=== PATIENT | male | born 1950 | race Caucasian/White ===

== ENCOUNTER 2018-12-18 10:15 | Inpatient (IN) | payer OTHER, MEDICARE ==
[~2018-12-18] VITALS: Ht 180.3 cm; Wt 126.2 kg
[2018-12-18 10:47] LABS: BASOPHILS ABSOLUTE AUTO 0.04 K/mm3 (0.00-0.23); BASOPHILS PERCENT AUTO 1 % (0-2); EOSINOPHILS ABSOLUTE AUTO 0.12 K/mm3 (0.00-0.68); EOSINOPHILS PERCENT AUTO 2 % (0-6); Hematocrit 38.8 % (37.0-53.0); Hemoglobin 12.5 g/dL (13.5-17.5); IMMATURE GRAN ABSOLUTE AUTO 0.02 K/mm3 (0.00-0.10); IMMATURE GRAN PERCENT AUTO 0 % (0-1); LYMPHOCYTES ABSOLUTE AUTO 1.49 K/mm3 (0.84-5.20); LYMPHOCYTES PERCENT AUTO 18 % (21-46); MONOCYTES PERCENT AUTO 11 % (4-13); Mean Corpuscular HGB Conc 32.2 g/dL (31.5-36.5); Mean Corpuscular Volume 87 fL (80-100); Mean Platelet Volume 10.9 fL (9.1-12.4); NEUTROPHILS ABSOLUTE AUTO 5.56 K/mm3 (1.96-9.15); NEUTROPHILS PERCENT AUTO 68 % (41-73); Platelet Count 154 K/mm3 (150-400); RDW Coefficient Variation 14.5 % (11.7-14.2); RDW Standard Deviation 46.5 fL (35.1-46.3); Red Blood Cell Count 4.46 M/mm3 (4.30-5.90); White Blood Cell Count 8.13 K/mm3 (4.00-11.30)
[2018-12-18 11:03] LABS: International Normalized Ratio 1.2; Prothrombin Time Results 12.5 Sec (9.7-11.5)
[2018-12-18 11:04] LABS: Alanine Aminotransfer (ALT/SGP 14 U/L (12-78); Albumin/Globulin Ratio 0.6 (0.8-1.8); Alk Phos 67 U/L (50-136); Anion Gap 6 mmol/L (6-16); Aspartate Aminotrans (AST/SGOT 23 U/L (12-37); Bilirubin, Total 1.2 mg/dL (0.1-1.0); Blood Urea Nitrogen 10 mg/dL (8-24); Bun/Creatinine Ratio 12.7 (12.0-20.0); CO2, Blood 29 mmol/L (21-32); Calcium, Blood 8.7 mg/dL (8.5-10.1); Chloride, Blood 105 mmol/L (98-108); Creatinine, Blood 0.79 mg/dL (0.60-1.20); Globulin, Blood 4.7 g/dL (2.2-4.0); Glomerular Filtration Rate >60 (60-); Glucose, Blood 119 mg/dL (70-99); Sodium, Blood 140 mmol/L (136-145); Total Protein, Blood 7.7 g/dL (6.4-8.2); Troponin I 0.025 ng/mL (0.000-0.040)
[2018-12-18] MEDS ORDERED: INSDET100 SC (11:13)
[2018-12-18] MEDS ORDERED: GLUCOSE BITS1 GM PO (11:14)
[2018-12-18] MEDS ORDERED: NOVOLOG FL100 UNIT/1 SC (11:15)
[2018-12-18] MEDS ORDERED: STRIVERDI RESPIM4 GM INH (11:15)
[2018-12-18] MEDS ORDERED: POTCHL20ER PO (11:16)
[2018-12-18] MEDS ORDERED: FURO40 PO (11:16)
[2018-12-18] MEDS ORDERED: ASPI81CH PO (11:16)
[2018-12-18] MEDS ORDERED: NYSTRITC TOP (11:16)
[2018-12-18] MEDS ORDERED: TRAM50 PO (11:17)
[2018-12-18] MEDS ORDERED: ATOR10 PO (11:18)
[2018-12-18] MEDS ORDERED: Vitamin D2000 UNIT PO (11:18)
[2018-12-18] MEDS ORDERED: PRAZ1 PO (11:18)
[2018-12-18] MEDS ORDERED: Nystop60 GM TOP (14:06)
[2018-12-18] MEDS ORDERED: Aspir 8181 MG PO (14:07)
[2018-12-18] MEDS ORDERED: PREG100 PO (14:12)
--- NOTE | 2018-12-18 14:22 | NUR ---
echocardiogram completed
--- NOTE | 2018-12-18 18:39 | NUR ---
pt arrived to [facility] 12 via gurney from ED. son in law in attendence. pt is moaning a bit especially when moved, but not really answering questions, did say something about not getting insulin this am. pt is not able to cooperate with assessement, he appears to be weak on left side, he has bere boots in place, son in law report they were changed a few days ago. pt is unkept, bed bath given, he has wet yeast to panus folds, and jagjit area, penis and scrotum is very red, buttocks are purple, with no blanching, in a large area, he had stool on arrival, this was cleaned, when the yeast areas and jagjit area was cleaned it bled a bit, when bere boots were removed there was a large amount of maggots to left foot, feet were washed in soapy sterile water, pictures were taken of all wounds, full bath given, report given to night RN.
--- NOTE | 2018-12-19 01:35 | NUR ---
Assumed care of pt at approx 1900. Pt with son in law at bedside at time of shift change. Admission completed with the help of Son. Pt with apparent and severe skin break down throughout body, most especially on BLE, bilateral feet found with magets living inbetween toes. Pt cleaned, wounds cleaned. Pt incont of stool and urine, two large BM's this shift, loose carina-like stools. Pt with L sided weakness, facial droop. Pt not able to use call light or make needs known, frequent rounds completed on pt. See admission assessment for detailed assesment. Will continue to assess pt and monitor.
[2018-12-19 04:08] LABS: BASOPHILS ABSOLUTE AUTO 0.05 K/mm3 (0.00-0.23); BASOPHILS PERCENT AUTO 1 % (0-2); EOSINOPHILS ABSOLUTE AUTO 0.22 K/mm3 (0.00-0.68); EOSINOPHILS PERCENT AUTO 3 % (0-6); Hematocrit 37.9 % (37.0-53.0); IMMATURE GRAN ABSOLUTE AUTO 0.02 K/mm3 (0.00-0.10); IMMATURE GRAN PERCENT AUTO 0 % (0-1); LYMPHOCYTES ABSOLUTE AUTO 1.33 K/mm3 (0.84-5.20); LYMPHOCYTES PERCENT AUTO 16 % (21-46); MONOCYTES ABSOLUTE AUTO 0.92 K/mm3 (0.16-1.47); MONOCYTES PERCENT AUTO 11 % (4-13); Mean Corpuscular HGB 27.8 pg (26.0-34.0); Mean Corpuscular HGB Conc 31.7 g/dL (31.5-36.5); Mean Corpuscular Volume 88 fL (80-100); Mean Platelet Volume 11.3 fL (9.1-12.4); NEUTROPHILS PERCENT AUTO 70 % (41-73); Platelet Count 152 K/mm3 (150-400); RDW Coefficient Variation 14.5 % (11.7-14.2); RDW Standard Deviation 46.5 fL (35.1-46.3); Red Blood Cell Count 4.31 M/mm3 (4.30-5.90); White Blood Cell Count 8.44 K/mm3 (4.00-11.30)
[2018-12-19 04:31] LABS: LDL/HDL RATIO 1.2; Very Low Density Lipoprot Chol 14 mg/dL (6-32)
[2018-12-19 04:32] LABS: Anion Gap 8 mmol/L (6-16); Blood Urea Nitrogen 10 mg/dL (8-24); Bun/Creatinine Ratio 13.2 (12.0-20.0); CHOL/HDL RATIO 2.6; CO2, Blood 26 mmol/L (21-32); Calcium, Blood 8.6 mg/dL (8.5-10.1); Chloride, Blood 106 mmol/L (98-108); Cholesterol 81 mg/dL (50-200); Creatinine, Blood 0.76 mg/dL (0.60-1.20); Glomerular Filtration Rate >60 (60-); Glucose, Blood 111 mg/dL (70-99); HDL Cholesterol 31 mg/dL (>39); Low Density Lipoprotein Chol 36 mg/dL (0-110); Potassium, Blood 3.1 mmol/L (3.5-5.5); Sodium, Blood 140 mmol/L (136-145); Triglycerides 70 mg/dL (30-160)
--- NOTE | 2018-12-19 06:39 | NUR ---
Shift Summary VSS. breathing easy and unlabored, denies SOB at rest, states he feels SOB when lying flat. Pt incont of urine and stool. three large loose stool bm this shift requiring full linen change with each void/bm. During the night, pt became disoriented and believed he was at home. Pt oriented again, now, at 0600. Pt presents with L sided weakness, L sided facial droop which is improving. Pt not able to use call light appropriately, yells out. Pt tolerating repositions and wound cleaning. Pt's skin is damaged throughout, open wounds to the BLE and Bilat feet. Open wounds to the buttocks, and scrotal area. MRI scheduled for this AM, MRI screening could not be completed d/t pt not knowing his hx. Awaiting family to arrive to aid in history for pt safety in procedure. Will continue to monitor pt until shift change.
[2018-12-19 10:34] LABS: Source, Urine Catheter
[2018-12-19 10:39] LABS: Appearance, Urine Clear (Clear); Bilirubin, Urine 2+ (Neg); Blood, Urine 2+ (Neg); Color, Urine Orange (P-Yellow); Glucose Qualitative, Urine Neg (Neg); Ketones, Urine 4+ (Neg); Leukocyte Esterase, Urine 1+ (Neg); Nitrite, Urine Neg (Neg); Protein, Urine 2+ (Neg); Urobilinogen, Urine 4+ (Normal)
[2018-12-19 10:46] LABS: Bacteria Few /hpf; Mucus Light (0-Heavy); Red Blood Cells, Urine 0-2 /hpf (0-2); Squamous Epithelial Cells Rare /hpf (Few); White Blood Cells, Urine 0-2 /hpf (0-5)
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
--- NOTE | 2018-12-19 22:09 | NUR ---
Assumed care of pt at approx 1915. Pt presents lying in bed with eyes closed. Pt opened eyes when instructed by this RN to open eyes, pt disoriented and believes he is at home. Pt redirectable, compliant, cooperative. Pt does call out yelling "Hey! Help!" when approaching pt after he calls out pt appears in no sign if distress, no changes in mentation, VSS, breathing easy and unlabored. See shift assessment for detailed systems assessment. Zapata in place, patent draining edson urine. Wounds cleansed. pt repositioned q2. Pt able to swallow pills with applesauce with no problems. Will continue to monitor and update.
[2018-12-20 03:52] LABS: BASOPHILS ABSOLUTE AUTO 0.04 K/mm3 (0.00-0.23); BASOPHILS PERCENT AUTO 1 % (0-2); EOSINOPHILS PERCENT AUTO 3 % (0-6); Hematocrit 37.7 % (37.0-53.0); Hemoglobin 11.9 g/dL (13.5-17.5); IMMATURE GRAN ABSOLUTE AUTO 0.02 K/mm3 (0.00-0.10); IMMATURE GRAN PERCENT AUTO 0 % (0-1); LYMPHOCYTES ABSOLUTE AUTO 1.43 K/mm3 (0.84-5.20); LYMPHOCYTES PERCENT AUTO 20 % (21-46); MONOCYTES ABSOLUTE AUTO 0.76 K/mm3 (0.16-1.47); MONOCYTES PERCENT AUTO 10 % (4-13); Mean Corpuscular HGB 27.7 pg (26.0-34.0); Mean Corpuscular HGB Conc 31.6 g/dL (31.5-36.5); Mean Corpuscular Volume 88 fL (80-100); Mean Platelet Volume 10.9 fL (9.1-12.4); NEUTROPHILS ABSOLUTE AUTO 4.83 K/mm3 (1.96-9.15); NEUTROPHILS PERCENT AUTO 67 % (41-73); Platelet Count 134 K/mm3 (150-400); RDW Coefficient Variation 14.6 % (11.7-14.2); RDW Standard Deviation 47.2 fL (35.1-46.3); Red Blood Cell Count 4.29 M/mm3 (4.30-5.90); White Blood Cell Count 7.28 K/mm3 (4.00-11.30)
[2018-12-20 04:09] LABS: Anion Gap 9 mmol/L (6-16); Blood Urea Nitrogen 14 mg/dL (8-24); Bun/Creatinine Ratio 17.9 (12.0-20.0); CO2, Blood 25 mmol/L (21-32); Calcium, Blood 8.6 mg/dL (8.5-10.1); Chloride, Blood 107 mmol/L (98-108); Creatinine, Blood 0.78 mg/dL (0.60-1.20); Glomerular Filtration Rate >60 (60-); Glucose, Blood 116 mg/dL (70-99); Potassium, Blood 3.3 mmol/L (3.5-5.5); Sodium, Blood 141 mmol/L (136-145)
--- NOTE | 2018-12-20 07:32 | NUR ---
Shift Summary Pt's orientation improved this shift. At begining of shift, pt was disoriented and did not know he was in hospital, by the end of the shift, pt able to explain to this RN why he came to the hospital, that he has had a stroke and relay to this RN the events leading up to the stroke. This is an improvement from the begining of shift. VSS. No events on tele. Wound care provided, oral care provided, pt repositioned q2. Report given to Cristina Abbasi for day shift.
--- NOTE | 2018-12-20 09:50 | NUR ---
AM NOTE PT RESTING QUIETLY. TELE OFF. AP IRREG/IRREG. VSS. PT BLE DRESSING CD&I. LE EELVATED ON PILLOWS. ORAL CARE DONE. PT FOLLOWING DIRECTIONS BETTER TODAT. HE C&DB WHEN ASKED. DURING ORAL CARE HE COUGHS UP LOONEY, SPUTUM STUFF THAT CAN BE ORALLY SUCTIONED. ORAL MEMBRANES SORE AND RED. PT HAS NEEDED LARGE AMOUNT OF ORAL CARE. HE MOUTH BREATHS. NPO. AWAITING SPEACH THERAPY TO CLEAR PT FOR ORAL INTAKE. IF CLEARED WILL CATCH PT UP ON MORNING MEDICATIONS. LOVE PATENT. IVF INFUSING. CONTINUE POT.
--- NOTE | 2018-12-20 15:17 | NUR ---
EATING PT CLEARED BY SPEACH THERAPY TO EAT PUREE/NECTAR BY SPOON. PT TOLERATES WELL BUT STARTS TO COUGH AFTER 5-6 SWALLOWS. TALKED WITH HIM ABOUT TUCKING HIS CHIN. HE DOESN'T LIKE TO SIT UP STRAIGHT AFTER EAT/DRINK BECAUSE HIS BUTTOCKS ARE ALREADY SORE. CONTINUE POT.
--- NOTE | 2018-12-21 00:39 | NUR ---
Assumed care of pt at approx 1900. Pt laying in bed, eyes open, L facial droop and L sided weakness continued per report from day RN. Pt oriented to person, place, time, and event. Pt alert. Breathing easy and unlabored. This RN attempted to medicate pt PO per orders, pt able to swallow PO medications but with moderate difficulty. Pt was sitting 90 degrees and pills crushed in applesauce. Pt states he does not feel as though he can swallow well. Pt with continued pt after q2 position changes, this RN does not feel comfortable giving PO medications at this time d/t pt complaint of weak swallow at this time. Provider Duc notified and orders recieved for one time IV fent dose. medication given bringing pt reported pain from 9 to a 5. Pt currently sleeping, breathing easy and unlabored at 18 bpm at this time. See shift assessment for detailed systems assessment. Call light in reach however pt continues to call out this shift. Pt remains with brenner in place. Rosa Maria care provided. Wound care provided. Pt currently sleeping. Will continue monitoring and updating.
--- NOTE | 2018-12-21 05:57 | NUR ---
Shift Summary No acute changes this shift. Pt remains with VSS. Alert and oriented, presenting with L facial droop and L sided weakness consistant with begining of shift. Pt experienced difficulty swallowing PM medications. Pt painful with each q2 turn, provider Duc notified and IV Fent ordered 1 time. Duc also recommended to re-evaluate swallow eval. Extensive oral care provided to pt this shift. All wounds cleaned and redressed this shift. Pt continues to call out instead of using call light to make needs known. Zapata patent and draining, no BM this shift.
--- NOTE | 2018-12-21 08:10 | NUR ---
pt laying in bed with his eyes closed, he denies pain, he states he's trying to get up, and is almost there, but hasn't moved, a/ox2, pleasnt and cooperative with care, follows commands, lungs are clear in upper ahmadi, dim in bases, resp even and unlabord, no cough noted, hrr, 2+ edema noted, iv x3 sites are clear and patent, btx4, abd round soft nontender, brenner cath draining edson urine, skin has multiple wounds, see chart pix, left upper ext is stiff with no movement, unable to move left leg, has a facial droop, was reported that he was having a lot a trouble swallowing last night and is pocketing, will wait for speech to see him before giving po, call light in reach.
--- NOTE | 2018-12-21 14:37 | NUR ---
pt has been turned and cleaned. no changes or needs, oral care and cath care done. call light in reach.
--- NOTE | 2018-12-21 18:54 | NUR ---
pt sleeping when left undisturbed, he's been turned. coughed up a large glob of yellow thick sputum, has been npo as he failed swallow exam, started him on clinimix and lipids as ordered, no further changes this shift. call light in reach.
[2018-12-22 04:12] LABS: BASOPHILS ABSOLUTE AUTO 0.06 K/mm3 (0.00-0.23); BASOPHILS PERCENT AUTO 1 % (0-2); EOSINOPHILS ABSOLUTE AUTO 0.34 K/mm3 (0.00-0.68); EOSINOPHILS PERCENT AUTO 3 % (0-6); Hematocrit 37.5 % (37.0-53.0); Hemoglobin 12.1 g/dL (13.5-17.5); IMMATURE GRAN ABSOLUTE AUTO 0.03 K/mm3 (0.00-0.10); IMMATURE GRAN PERCENT AUTO 0 % (0-1); LYMPHOCYTES ABSOLUTE AUTO 1.29 K/mm3 (0.84-5.20); LYMPHOCYTES PERCENT AUTO 13 % (21-46); MONOCYTES ABSOLUTE AUTO 0.89 K/mm3 (0.16-1.47); MONOCYTES PERCENT AUTO 9 % (4-13); Mean Corpuscular HGB 27.8 pg (26.0-34.0); Mean Corpuscular HGB Conc 32.3 g/dL (31.5-36.5); Mean Corpuscular Volume 86 fL (80-100); Mean Platelet Volume 11.2 fL (9.1-12.4); NEUTROPHILS ABSOLUTE AUTO 7.48 K/mm3 (1.96-9.15); NEUTROPHILS PERCENT AUTO 74 % (41-73); Platelet Count 145 K/mm3 (150-400); RDW Coefficient Variation 14.4 % (11.7-14.2); RDW Standard Deviation 45.1 fL (35.1-46.3); Red Blood Cell Count 4.35 M/mm3 (4.30-5.90); White Blood Cell Count 10.09 K/mm3 (4.00-11.30)
[2018-12-22 04:31] LABS: Alanine Aminotransfer (ALT/SGP 12 U/L (12-78); Albumin, Blood 2.6 g/dL (3.4-5.0); Albumin/Globulin Ratio 0.6 (0.8-1.8); Alk Phos 57 U/L (50-136); Anion Gap 7 mmol/L (6-16); Aspartate Aminotrans (AST/SGOT 27 U/L (12-37); Bilirubin, Total 1.5 mg/dL (0.1-1.0); Blood Urea Nitrogen 11 mg/dL (8-24); Bun/Creatinine Ratio 14.6 (12.0-20.0); CO2, Blood 29 mmol/L (21-32); Calcium, Blood 8.4 mg/dL (8.5-10.1); Chloride, Blood 105 mmol/L (98-108); Creatinine, Blood 0.75 mg/dL (0.60-1.20); Globulin, Blood 4.6 g/dL (2.2-4.0); Glomerular Filtration Rate >60 (60-); Glucose, Blood 170 mg/dL (70-99); Magnesium, Blood 1.9 mg/dL (1.6-2.4); Potassium, Blood 3.5 mmol/L (3.5-5.5); Sodium, Blood 141 mmol/L (136-145); Total Protein, Blood 7.2 g/dL (6.4-8.2); Triglycerides 97 mg/dL (30-160)
--- NOTE | 2018-12-22 05:07 | NUR ---
Shift Summary No acute changes this shift. VSS. Pt repositioned q2, oral care q4 per orders. pt tolerates with encouragement. 1 small BM this shift. Cath care provided, bed bath given, wound care provided. Pt tolerates and is compliant with care at this time, though with hesistation, therefore this RN explains and encourages pt throughout care. Mouth swabs given to pt to wet mouth prn this shift. Pt unable to swallow safely, all PO medications not given for pt safety. Pt is currently NPO and recieving lipids and clinimix infusing in the LH at 100mls/hr (lipids at 1800 at 25mls/hr with filter). This RN verified with pharmacy that lipids can infuse with clinimix at either Y site or at piggy back. Pt continues with L sided weakness, L sided facial, slurred speech, consistant and unchanged from previous shift. No further changes from initial shift assessment.
--- NOTE | 2018-12-22 15:11 | NUR ---
Initial Visit: Palliative Care Consult for New Diagnosis, Symptom Management, and Goals of Care. Pt is A&Ox4 and reports 10/10 pain in his back. He reports mild dyspnea and and nuasea that are currently managed. He denies anxiety at this time. Engaged in therapeutic discussion regarding goals of care. Encouraged Pt to express concerns and fears. Pt reports that he does not want a feeding tube placed. Educated Pt on consequences of no feeding tube with the inability to swallow safely. Discussed comfort care as an option and Pt tends to deflect at first. Pt reports he would like to discuss his options with his daughter. Received permission to contact his daughter and son in law. Pt's primary goal at this time is managing his pain. No other concerns at this time. Called and spoke with son in law Christopher regarding Pt failing swallow evaluation and his decision against peg tube placement. Educated on the consequences of eating and drinking at this point. Christopher reports plan for him and Pt's daughter Kylah to visit with Pt tomorrow wanda. Instructed Christopher to contact palliative care when they arrive with V/U made by Christopher. Called and spoke with Dr Lynch and placed order for Fentanyl 25mcg IV every 2 hours as needed for pain per V/O from Dr Lynch. Discussed plan for family to have discussion with Pt to establish goals. Spoke with healthcare business analyst Swati regarding discussion. Swati will [facility] to [facility] all [facility] for Pt that include care support. Plan: Palliative Care will F/U for therapeutic visits and remain supportive for Pt and family discussions. Will F/U for pain management.
--- NOTE | 2018-12-22 16:16 | NUR ---
SHIFT SUMMARY PT RESTING IN BED THROUGHOUT THE DAY. VSS. ALERT AND ORIENTED X3. SPEECH IS SLURRED, PT IS SLOW TO RESPOND, BUT RESPONDS APPROPRIATELY. LEFT FACIAL DROOP NOTED. LEFT ARM AND LEG WEAKNESS NOTED, PT STATES HE CANNOT FEEL ANYTHING ON HIS LEFT ARM OR LEG. PT NPO PER SPEECH THERAPY, PER ST [facility] PT IS UNABLE TO PROTECT HIS AIRWAY. CONTINUE ORAL CARE Q4 HOURS. 2+ PITTING EDEMA TO BLE, TRACE EDEMA TO LEFT ARM. REDNESS TO BLE. PURPLE COLORING AND PEELING SKIN NOTED TO BUTTOCK / COCCYX. Q2 TURNS THROUGHOUT THE DAY. LOVE DRAINING ANNITA URINE. PT INCONTINENT OF LOOSE BROWN STOOL THIS AM.
--- NOTE | 2018-12-22 16:22 | NUR ---
TRANSFER NOTE PT STABLE FOR TRANSFER TO MEDICAL FLOOR. REPORT CALLED TO MIKHAIL RODRIGUES ON MEDICAL FLOOR. PT TRANSFERED VIA BED TO MEDICAL FLOOR WITH BELONGINGS.
--- NOTE | 2018-12-22 18:33 | NUR ---
SHIFT SUMMARY THERESA ARRIVED ON MEDICAL FLOOR AROUND 430PM, RESTING COMFORTABLY. HAD ONE BM SINCE ARRIVAL, 2 PERSON TURN AND CHANGE. VERY UNCOMFORTABLE FOR PT TO TURN. CBGS NOT REQUIRING INSULIN THIS SHIFT. LOVE PATENT AND DRAINING, LOVE CARE DONE. CALAZIME APPLIED TO VERY RED BOTTOM AND COCCYX. SUCTION ORAL CARE DONE. CALL LIGHT IN REACH, [facility]
--- NOTE | 2018-12-23 05:44 | NUR ---
SHIFT SUMMARY PATIENT IS ALERT AND ORIENTED TO SELF AND PLACE. DID HAVE SOME CONFUSION THROUGHOUT THE NIGHT. WAS HALLUCINATING THINGS IN THE AIR. PATIENT HAD A BOWEL MOVEMENT. BED BATH GIVEN. LINENS CHANGED TWICE. PATIENT DOES NOT LIKE TO BE REPOSITIONED OR TURNED. LOVE CARE DONE, DRAINING WELL. PRN SUCTION AND ORAL CARE. PATIENT WAS ABLE TO COUGH UP SOME THICK SPUTUM. VITALS STABLE. NO NEW CHANGES THROUGHOUT THE NIGHT.
--- NOTE | 2018-12-23 11:22 | NUR ---
Pt visit this AM. Pt is sitting in chair upon arrival with family present. Pt is confused today and appears moderately anxious. Pt reports not wanting to be apart of conversation for goals of care with family. Daughter Kylah and son in law Christopher (CHARU) are agreeable to have conference else where. Escorted family to ED Palliative Care office. Educated on Pt's inability to swallow safely and his decision of not wanting a peg tube placement. Educated on the risk for aspiration due to lack of swallowing ability. Discussed the importance of respecting Pt's choice and comfort care as an option. Educated on comfort care and hospice philosophy. Family tearful during conversation and emotional support offered. Encouraged family to express fears and concerns. Family expresses fears regarding Pt passing away at home and Christopher states he does not think he could handle Pt passing away at home. He states he would need multiple councelors if this occured. Educated on the benefits of supportive team of hospice including social workers, chaplains, and bereavment support. Suggested to focus on establishing goals of care at this time. Family reports they would like to absorb and process information before making a decision and attempt to discuss with Pt during his more lucid moments. No other concerns reported at this time. Gave family contact information for palliative care and instructed to call for any quesitons or concerns. Escorted family back to Pt's room. Pt still confused but reports 9/10 pain in his back. Pt appears mildly agitated. Reported to bedside nurse of Pt's pain and family's need for sometime before making a decision. Palliative Care will remain available.
--- NOTE | 2018-12-23 17:20 | NUR ---
PATIENT IS ALERT. FAMILY WAS AT THE BEDSIDE FOR MOST OF THE MONRING, JOKING AND LAUGHING WITH THE PATIENT. PALLIATIVE CARE TALKED TO THE PATIENT'S DAUGHTER AND SON-IN-LAW. PATIENT COMPLAINED OF LOW BACK PAIN, TREATED PER EMAR AND WITH REPOSITIONING. LOVE IS IN PLACE AND PATENT. BM TODAY, LIQUID. LINEN CHANGED. PATIENT GOT UP TO THE RECLINER THIS MORNING AND AGAIN IN THE AFTERNOON BY LIFT. SUCTIONING IS PERFORMED Q4H AND PRN. PATIENT IS CURRENTLY IN RECLINER, SLEEPING. WILL CONTINUE TO MONITOR.
--- NOTE | 2018-12-23 17:34 | NUR ---
Pal Spiritual Care note: Attempted to meet with family throughout shift. They returned home this AM and have not been back. Pt appears to be comfortably sleeping. No physical signs of distress. [employer] will remain available to pt and family.
--- NOTE | 2018-12-24 06:22 | NUR ---
SHIFT SUMMARY PATIENT ALERT TO YEAR AND PLACE. ON ROOM AIR, ORDERS FOR Q4H SUCTION. PATIENT HAS BEEN SUCTIONED AND HAD ORAL CARE MORE THAN Q4H, PATIENT COUGHS UP THICK SPUTUM. PATIENT IS A TURN Q2H, PATIENT DOES NOT LIKE TO BE MOVED. STATES IT HURTS HIS BACK. PATIENT'S COCCYX LOOKS WORSE TONIGHT COMPARED TO LAST NIGHT. TOOK ANOTHER PICTURE FOR AN UPDATE. PATIENT DOES HALLUCINATE AND GET CONFUSED THROUGHOUT THE NIGHT. PATIENT IS STRICT NPO. VITALS STABLE NO OTHER CHANGES THROUGHOUT THE NIGHT.
--- NOTE | 2018-12-24 10:40 | NUR ---
Pt visit this AM. Pt's daughter Kylah and son in law Christopher present during visit. Christopher reports having discussion with Pt and is now considering having a peg tube placed. Pt is more alert today and is appropriate for conversation. Pt reports 6/10 pain and reports pain is being managed with current regimen. Pt inquires about his chances of recovery with rehabilitation and this RN deferred question to Dr Lynch. Family requests for Dr Lynch to visit. Dr Lynch educates on recovery through rehabilitation and educated on peg tube placement. Pt requests peg tube placement. Pt reports no other concerns at this time. Palliative Care will remain available.
--- NOTE | 2018-12-24 17:49 | NUR ---
SHIFT SUMMARY: NO ACUTE CHANGES TO REPORT THIS SHIFT. PT HX CVA c L SIDE WEAKNESS. PT CHAIRBOUND; MULTIPLE SKIN ISSUES; SEE PICS IN CHART; MEDICATED FOR PAIN PER EMAR. ASPIRATION RISK R/T CVA; STRICT NPO; DR SIMON (GI) PLANNING TO PLACE PEG TUBE 12/25; NO ANTICOAGULANTS TO BE ADMINISTERED. LOVE IN PLACE; PATENT AND DRAINING. WCTM.
--- NOTE | 2018-12-25 00:37 | NUR ---
DR TEE called and updated PT is strict NPO and all oral meds held. PT has peg tube placement pending post cva. IV pain and nausea meds given. Clinimix and lipids running IV.
[2018-12-25 05:16] LABS: BASOPHILS ABSOLUTE AUTO 0.06 K/mm3 (0.00-0.23); BASOPHILS PERCENT AUTO 1 % (0-2); EOSINOPHILS ABSOLUTE AUTO 0.44 K/mm3 (0.00-0.68); EOSINOPHILS PERCENT AUTO 6 % (0-6); Hematocrit 38.4 % (37.0-53.0); Hemoglobin 12.3 g/dL (13.5-17.5); IMMATURE GRAN ABSOLUTE AUTO 0.07 K/mm3 (0.00-0.10); IMMATURE GRAN PERCENT AUTO 1 % (0-1); LYMPHOCYTES ABSOLUTE AUTO 1.33 K/mm3 (0.84-5.20); LYMPHOCYTES PERCENT AUTO 17 % (21-46); MONOCYTES ABSOLUTE AUTO 0.66 K/mm3 (0.16-1.47); MONOCYTES PERCENT AUTO 8 % (4-13); Mean Corpuscular HGB 27.6 pg (26.0-34.0); Mean Corpuscular Volume 86 fL (80-100); Mean Platelet Volume 11.3 fL (9.1-12.4); NEUTROPHILS ABSOLUTE AUTO 5.42 K/mm3 (1.96-9.15); NEUTROPHILS PERCENT AUTO 68 % (41-73); Platelet Count 151 K/mm3 (150-400); RDW Coefficient Variation 14.5 % (11.7-14.2); Red Blood Cell Count 4.46 M/mm3 (4.30-5.90); White Blood Cell Count 7.98 K/mm3 (4.00-11.30)
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
[2018-12-25 05:35] LABS: Albumin, Blood 2.6 g/dL (3.4-5.0); Anion Gap 6 mmol/L (6-16); Blood Urea Nitrogen 12 mg/dL (8-24); Bun/Creatinine Ratio 19.4 (12.0-20.0); CO2, Blood 28 mmol/L (21-32); Calcium, Blood 8.4 mg/dL (8.5-10.1); Chloride, Blood 105 mmol/L (98-108); Creatinine, Blood 0.62 mg/dL (0.60-1.20); Glomerular Filtration Rate >60 (60-); Glucose, Blood 164 mg/dL (70-99); Phosphorus, Blood 3.4 mg/dL (2.5-4.9); Potassium, Blood 3.6 mmol/L (3.5-5.5); Sodium, Blood 139 mmol/L (136-145)
--- NOTE | 2018-12-25 09:37 | NUR ---
CHARU MCCARTY, STATES PATIENT'S ONLY ALLERGY IS PENICILLIN AND THAT PATIENT IS NOT ALLERGIC TO GABAPENTIN OR CYMBALTA. ALLERGY LIST UPDATED. History, Chart, Medications and Allergies reviewed before start of procedure. Patient confirms NPO status and agrees with scheduled surgery.
--- NOTE | 2018-12-25 10:19 | NUR ---
12/25/18 1019 Cathie Wagner PROCEDURE ROOM ENDO #1. MONITOR INTACT WITH CONTINUOUS PULSE OXIMETRY AND INTERMITTENT BP.
--- NOTE | 2018-12-25 11:11 | NUR ---
BIOX 96% ON 4L O2/NC. REMOVED SUPPLEMENTAL O2. WILL OBSERVE FOR SATURATIONS MAINTAINING ABOVE 90%.
--- NOTE | 2018-12-25 11:14 | NUR ---
BIOX 93% RA.
--- NOTE | 2018-12-25 17:55 | NUR ---
SHIFT SUMMARY 68 YR OLD MALE ADMITTED FOR CVA. DNR CODE. TODAY HAD A PEG TUBE PLACED DUE TO HIGH ASPIRATION CONCERNS. PT TOLERATED PROCEDURE WELL. POST OP VITALS WERE STARTED WHEN HE RETURNED TO ROOM. PT IS GLUCOSE CHEMSTICKS Q 6 WHILE NPO, PT IS STILL STRICT NPO. PT HAS A BANDAGED WOUND ON LEG. SKIN CONDITION IS POOR. SKIN ON FEET IS EXCORIATED. BLE AND BUE ARE EDEMATOUS. PT LIVES W/DAUGHTER AND SON-IN-LAW WHO IS HIS CAREGIVER. I HAVE PUT IN A DIETARY CONSULT FOR THE PEG TUBE. PT IS A LIFT PT, MORBIDLY OBESE. CLINIMIX AND LIPIDS ARE CURRENTLY RUNNING. FENTANYL FOR CHRONIC BACK PAIN IS IN EMAR. PT HAS A LOVE. HX: RT. SIDED CVA, PTSD, DM2, NEUROPATHY, COPD, CAD POST NE, HTN, VENOUS DERMATITIS, VENOUS INSUFFICIENCY.
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
--- NOTE | 2018-12-26 10:46 | NUR ---
TUBE FEEDING HAS BEGAN TUBE FEEDING HAS BEGUN ORDERED. MEDS THAT CAN BE CRUSHED WERE GIVEN THROUGH THE PEG TUBE. WILL CONTINUE TO MONITOR. SO FAR THE PT IS TOLERATING THE TUBE FEEDING WELL.
--- NOTE | 2018-12-26 15:41 | NUR ---
PEG RESIDUAL PT IS TOLERATING PEG TUBE FEEDING WELL. NO ABNORMAL LUNG SOUNDS. PT HAD AN OCCASIONAL MOIST COUGH BEFORE PEG TUBE WAS PLACED, THIS REMAINS BUT HAS NOT WORSENED. BOWEL TONES IN ALL 4 QUADRANTS. HOB ELEVATED >45 DEGREES. <10 ML RESIDUAL. DRESSING CHANGED. FEEDING CONTINUES.
--- NOTE | 2018-12-26 17:45 | NUR ---
SHIFT SUMMARY 68 YR OLD MALE ADMITTED FOR CVA. DNR CODE. PEG TUBE PUT IN YESTERDAY. TODAY WE HAVE BEGUN TUBE FEEDING (<10 ML RESIDUAL). PT IS TOLERATING THIS WELL. NO N/V. I HAVE NOT NOTICED AN INCREASE IN MOIST COUGHING SPELLS. DIABETIC, LOW SS. MORBIDLY OBESE LIFT PT. DRESSING ON RT LEG CHANGED TODAY. DRESSING ON PEG TUBE ENTRY CHANGED TODAY. ROOM AIR. ADULT BRIEF IN PLACE. HX: RT SIDED CVA, PTSD, DM2, NEUROPATHY, COPD, CAD POST ND, HTN, VENOUS DERMATITIS/INSUFFICIENCY. LOVE IS PATENT AND DRAINING. SKIN ON FEET IS EXCORIATED, BUT IMPROVING. SON IN LAW IS CAREGIVER AT HOME.
--- NOTE | 2018-12-26 18:36 | NUR ---
CLINIMIX/LIPIDS DC'D @ 1830 HRS FEED RATE INCREASED TO 35 ML/HR. <10 ML RESIDUAL. ORDERED I HAVE DC'D ADMINISTRATION OF CLINIMIX/LIPIDS AT THIS TIME.
--- NOTE | 2018-12-27 06:23 | NUR ---
pt TOLERATED TUBE FEED AND WAS ABLE TO INCREASE IT TO 60 ML AND HOUR THIS am. PAIN MED WAS HELPFUL WHEN GIVEN VIA TUBE. Continues to holler help intermittantly and is hard to redirect. Oral care and suction q 2 hours and PRN to keep airway patent. Skin care to chronic wounds. Zapata patent urine more dilute.
--- NOTE | 2018-12-27 14:37 | NUR ---
BLOOD IN URINE DR. MARTINEZ CALLED & NOTFIED THAT PT HAS DARK RED BLOOD IN HIS URINE. ORDERED TO FLUSH IT AND SEE IF IT CLEARS UP. ALSO CLARIFIED TO CLEANS WOUND DAILY & CHANGE DRESSING THEN. WILL CONTINUE TO MONITOR.
--- NOTE | 2018-12-27 15:17 | NUR ---
BLADDER IRRIGATED. PT BLADDER IRRIGATED PER DR. MARTINEZ. 60ML OF STERILE WATER PLACED. 60 ML OF CLEAR/LIGHT YELLOW/PINKISH WATER REMOVED. WILL CONTINUE TO MONITOR URINE COLOR.
--- NOTE | 2018-12-27 17:59 | NUR ---
SHIFT SUMMARY PT CONTINUES TO HAVE DARK RED BLODY URINE AFTER FLUSH TODAY. PT VERY GURGLY & REQUIRES OFTEN SUCTION. SCOPALAPINE PATCHED ORDERED PER DR. MARTINEZ & PLACED BEHIND L EAR. PT UP IN CHAIR FOR MOST THE DAY. CONTINUES TO HAVE LOOSE STOOLS. NO OTHER CHANGES IN ASSESSMENT AT THIS TIME. VSS. PT SRICT NPO. ORAL CARE COMPLETED THROUGHOUT DAY. WILL CONTINUE TO MONITOR UNTIL TURNOVER IS COMPLETE.
--- NOTE | 2018-12-28 02:29 | NUR ---
@2129- PT. SATS BETWEEN HIGH 70'S-80'S. NO APPARENT DISTRESS NOTED, ALERT AND TALKING TO THIS NURSE AND MIXED CROP FARMER. REPOSITIONED PT. AND PLACED ON 3L OF 02. SATS CAME UP TO 91-92% CALLED RT TO ROOM FOR FURTHER ASSESSMENT, PERFORMED SUCTION. PT. SATS REMAINED ABOVE 90% OTHER VITALS WNL. PT. SEEMS COMFORTABLE IN BED. CALL LIGHT WITHIN IN REACH AND SIDE RAILS UP X2. WILL CONT TO MONITOR.
--- NOTE | 2018-12-28 02:36 | NUR ---
@2220- PERFORMED TUBE FEEDING PER ORDER, THERE WAS 20ML RESIDUAL. 355ML OF JEVITY 1.5 GIVEN VIA GRAVITY WITH 200ML FLUSH PRE AND POST FEEDING PER ORDER. PT. TOLERATED WELL.
--- NOTE | 2018-12-28 04:56 | NUR ---
SHIFT SUMMARY- PT. RESTED ON/OFF T/O THE SHIFT. ON 2L OF TO KEEP SATS AT OR ABOVE 92%. SUCTION PERFORMED PRN, ORAL CARE DONE Q2HRS AND PRN. PT. TOLERATED TUBE FEEDING WELL. APPEARANCE OF URINE IN LOVE CATHETER REMAINS DARK RED, CATHETER FLUSH DONE PRN. NO APPARENT DISTRESS NOTED, CALL LIGHT WITHIN REACH, AND SIDE RAILS UP X2. WILL CONT TO MONITOR.
[2018-12-28 09:48] LABS: Source, Urine Catheter
[2018-12-28 09:54] LABS: Appearance, Urine Turbid (Clear); Bilirubin, Urine Neg (Neg); Blood, Urine 5+ (Neg); Color, Urine Red (P-Yellow); Glucose Qualitative, Urine Neg (Neg); Ketones, Urine Neg (Neg); Leukocyte Esterase, Urine 2+ (Neg); Nitrite, Urine Neg (Neg); Protein, Urine 4+ (Neg); Urobilinogen, Urine 2+ (Normal); pH, Urine 6.5 (5.0-8.0)
[2018-12-28 09:55] LABS: BASOPHILS ABSOLUTE AUTO 0.04 K/mm3 (0.00-0.23); BASOPHILS PERCENT AUTO 1 % (0-2); EOSINOPHILS ABSOLUTE AUTO 0.29 K/mm3 (0.00-0.68); EOSINOPHILS PERCENT AUTO 4 % (0-6); Hematocrit 35.4 % (37.0-53.0); IMMATURE GRAN ABSOLUTE AUTO 0.04 K/mm3 (0.00-0.10); IMMATURE GRAN PERCENT AUTO 1 % (0-1); LYMPHOCYTES ABSOLUTE AUTO 0.81 K/mm3 (0.84-5.20); LYMPHOCYTES PERCENT AUTO 11 % (21-46); MONOCYTES ABSOLUTE AUTO 0.93 K/mm3 (0.16-1.47); MONOCYTES PERCENT AUTO 12 % (4-13); Mean Corpuscular HGB 27.8 pg (26.0-34.0); Mean Corpuscular HGB Conc 31.1 g/dL (31.5-36.5); Mean Platelet Volume 11.4 fL (9.1-12.4); NEUTROPHILS ABSOLUTE AUTO 5.45 K/mm3 (1.96-9.15); NEUTROPHILS PERCENT AUTO 72 % (41-73); Platelet Count 133 K/mm3 (150-400); RDW Coefficient Variation 14.6 % (11.7-14.2); RDW Standard Deviation 47.4 fL (35.1-46.3); Red Blood Cell Count 3.96 M/mm3 (4.30-5.90); White Blood Cell Count 7.56 K/mm3 (4.00-11.30)
[2018-12-28 10:12] LABS: Albumin, Blood 2.4 g/dL (3.4-5.0); Anion Gap 3 mmol/L (6-16); Blood Urea Nitrogen 15 mg/dL (8-24); Bun/Creatinine Ratio 20.5 (12.0-20.0); CO2, Blood 31 mmol/L (21-32); Chloride, Blood 103 mmol/L (98-108); Creatinine, Blood 0.73 mg/dL (0.60-1.20); Glomerular Filtration Rate >60 (60-); Glucose, Blood 207 mg/dL (70-99); Phosphorus, Blood 3.4 mg/dL (2.5-4.9); Potassium, Blood 3.9 mmol/L (3.5-5.5); Sodium, Blood 137 mmol/L (136-145)
[2018-12-28 10:14] LABS: Mean Corpuscular Volume 89 fL (80-100)
[2018-12-28 10:18] LABS: Red Blood Cells, Urine TNTC /hpf (0-2)
[2018-12-28 10:19] LABS: Bacteria Mod /hpf; Squamous Epithelial Cells Not Seen /hpf (Few)
--- NOTE | 2018-12-28 11:46 | NUR ---
PT CATHETER IRRIGATED PT CATHETER IRRIGATED WITH 300CC OF STERILE WATER. RETURN URINE CLEAR, LIGHT YELLOW WITH PINK TINGED. WILL CONTINUE TO MONITOR.
--- NOTE | 2018-12-28 17:19 | NUR ---
SHIFT SUMMARY PT OFF O2. WHEN PT A DEEP COUGH & SECRETIONS ARE BROUGHT TO BACK OF THROAT PT TENDS TO DESAT TO THE HIGH 80S. PT SUCTIONS FREQUENTLY & O2 SATS CHECKED NEEDED. PT URINE SLITTING MACHINE OPERATOR HELPER RED & MORE CLEAR THAN EARLIER IN THE SHIFT. NO OTHER CHANGES IN ASSESSMENT AT THIS TIME. VSS. PT TOLERATING BOLUS FEEDINGS WELL. NO COMPLAINTS OF N/V OR ABD CRAMPING. WILL CONTINUE TO MONITOR UNTIL TURNOVER IS COMPLETE.
--- NOTE | 2018-12-29 02:41 | NUR ---
@2130- CHECKED RESIDUAL BEFORE FEEDING. NOTED 60ML. TUBE FEEDING PERFORMED VIA PEG TUBE. JEVITY 1.5, 355ML GIVEN WITH 200ML BEFORE AND AFTER FLUSH OF WATER. PT. TOLERTED WELL.
--- NOTE | 2018-12-29 02:44 | NUR ---
NO RESIDUAL NOTED. PERFORMED TUBE FEEDING. 355ML OF JEVITY 1.5. FLUSHED WITH 200ML OF WATER BEFORE AND AFTER FEEDING. PT. TOLERATED WELL. WILL CONT TO MONITOR.
--- NOTE | 2018-12-29 03:21 | NUR ---
SHIFT SUMMARY- PT. SATS IN THE 80'S AT START OF THE SHIFT. PLACED ON 2L OF 02 PER ORDER, SATS UP TO 96%. CONTINUES TO HAVE THICK SECRETIONS. SUCTION DONE PRN, ORAL CARE, AND REPOSITIONING Q2HRS. TOLERATING BOLUS TUBE FEEDINGS WELL. LOVE IN PLACE, CONTINUES TO HAVE DARK RED URINE. BLADDER IRRIGATED PER ORDER WITH 100ML OF STERILE WATER. CLEAR PINK TINGED URINE RETURN DURING IRRIGATION, BUT NO OVERALL IMPROVEMENT NOTED IN URINE. VSS, REMOVED 02, SATS AT 94% ON RA, NO DISTRESS NOTED. CALL LIGHT WITHIN REACH AND SIDE RAILS UP X2. WILL CONT TO MONITOR.
--- NOTE | 2018-12-29 04:43 | NUR ---
PERFORMED BLADDER IRRIGATION WITH 400ML OF STERILE WATER. URINE RETURN LIGHT RED WITH CLOTS. URINE CLEAR AFTERWARDS. PT. TOLERATED WELL, WILL CONT TO MONITOR.
[2018-12-29 04:53] LABS: BASOPHILS ABSOLUTE AUTO 0.04 K/mm3 (0.00-0.23); BASOPHILS PERCENT AUTO 1 % (0-2); EOSINOPHILS ABSOLUTE AUTO 0.31 K/mm3 (0.00-0.68); EOSINOPHILS PERCENT AUTO 4 % (0-6); Hemoglobin 11.6 g/dL (13.5-17.5); IMMATURE GRAN ABSOLUTE AUTO 0.03 K/mm3 (0.00-0.10); IMMATURE GRAN PERCENT AUTO 0 % (0-1); LYMPHOCYTES ABSOLUTE AUTO 1.15 K/mm3 (0.84-5.20); LYMPHOCYTES PERCENT AUTO 14 % (21-46); MONOCYTES PERCENT AUTO 12 % (4-13); Mean Corpuscular HGB 27.9 pg (26.0-34.0); Mean Corpuscular HGB Conc 31.4 g/dL (31.5-36.5); Mean Corpuscular Volume 89 fL (80-100); Mean Platelet Volume 11.5 fL (9.1-12.4); NEUTROPHILS ABSOLUTE AUTO 5.67 K/mm3 (1.96-9.15); NEUTROPHILS PERCENT AUTO 69 % (41-73); Platelet Count 143 K/mm3 (150-400); RDW Coefficient Variation 14.7 % (11.7-14.2); RDW Standard Deviation 47.2 fL (35.1-46.3); Red Blood Cell Count 4.16 M/mm3 (4.30-5.90)
[2018-12-29 05:20] LABS: Albumin, Blood 2.5 g/dL (3.4-5.0); Anion Gap 5 mmol/L (6-16); Blood Urea Nitrogen 13 mg/dL (8-24); Bun/Creatinine Ratio 17.6 (12.0-20.0); CO2, Blood 33 mmol/L (21-32); Calcium, Blood 8.3 mg/dL (8.5-10.1); Chloride, Blood 100 mmol/L (98-108); Creatinine, Blood 0.74 mg/dL (0.60-1.20); Glomerular Filtration Rate >60 (60-); Glucose, Blood 220 mg/dL (70-99); Phosphorus, Blood 3.2 mg/dL (2.5-4.9); Potassium, Blood 3.5 mmol/L (3.5-5.5); Sodium, Blood 138 mmol/L (136-145)
--- NOTE | 2018-12-29 16:28 | NUR ---
SHIFT SUMMARY 68 YR OLD MALE ADMITTED FOR CVA. DNR CODE. LEFT SIDED DEFICITS. BEDREST/MECHANICAL LIFT PT. MORBIDLY OBESE. LOVE W/SANGUINOUS URINE WAS BLOODY AT BEGINNING OF SHIFT, CLEARED, THEN SANGUINOUS URINE RETURNED. I HAVE FLUSHED THIS PT'S BLADDER ORDERED AND ADMINISTERED TUBE FEEDINGS/FLUSHES ORDERED. I HAVE ALSO SUCTIONED THIS PT AND RETRIEVED THICK WHITE SPUTUM. INFORMED MY MALTED MILK MIXER THAT I WOULD LIKE THIS PT'S HOB ELEVATED AT ALL TIMES. PLAN IS TO AWAIT PLACEMENT IN A SNF. HOSPITALISTS ARE INVESTIGATING THE SANGUINOUS URINE.
--- NOTE | 2018-12-29 16:56 | NUR ---
TUBE FEEDING/BLADDER FLUSHED ADMINISTERED TUBE FEEDING ORDERED. PT TOLERATED WELL. NO S/SX REPORTED OR OBSERVED. I THEN NOTED 100 ML OR SANGUINOUS URINE IN LOVE BAG, SO I FLUSHED THE PT'S BLADDER AGAIN USING STERILE TECHNIQUE. PT SLEPT THROUGH THIS PROCEDURE.
--- NOTE | 2018-12-30 06:40 | NUR ---
repositioned, oral care, cbg, tube feeding done as well as assessments and accomadations completed, asphasic, call light and suction in reach, room air, saline locked, dressings cdi, will continue to monitor and carefore until complete bsr with day shift
--- NOTE | 2018-12-30 10:49 | NUR ---
CALLED HOSPITALIST PT OBTUNDED TODAY. NOT RESPONSIVE TO STAFF HE HAS BEEN ON PREVIOUS SHIFTS. I SEE HE HAS NOT RECEIVED NARCOTIC SINCE THURSDAY. HOSPITALIST ORDERED ABG FOR THIS PT TO INVESTIGATE. WILL CONTINUE TO MONITOR. ALL DRESSINGS CHANGED. URINE IS SO FAR CLEAR OF SANGUINOUS URINE, IT IS NOW DARK ANNITA.
[2018-12-30 11:21] LABS: PCO2 Arterial 52.7 mmHg (35-45); PO2 Arterial 59.2 mmHg (80-100); pH Blood Arterial 7.45 (7.35-7.45)
--- NOTE | 2018-12-30 11:27 | NUR ---
RT CALLED WITH ABG RESULTS STATED PT IS SLIGHTLY HYPOXIC AND WOULD BENEFIT FROM 2 LPM O2, BUT THE RESULTS OF THE ABG WOULD NOT EXPLAIN PT'S AMS. HOWEVER, THE PT IS MORE ALERT NOW THAT FAMILY IS PRESENT.
--- NOTE | 2018-12-30 15:59 | NUR ---
SHIFT SUMMARY PT SLEPT THROUGHOUT MOST OF SHIFT. BECAME MORE ALERT FOR FAMILY VISIT. LOVE URINE IS STILL DARK ANNITA. PHARMACY CALLED AND STATED THAT A URINE CULTURE CAME BACK POSITIVE FOR PROBABLE ENTEROCOCCUS. I CALLED THE HOSPITALIST AND INFORMED HER. AWAITING FURTHER ORDERS. PT TOLERATED TUBE FEEDINGS WELL. INFORMED TOURIST CABIN KEEPER THAT WE NEED A CURRENT WT FOR THIS PT, WHEN NEXT WE GET HIM UP IN CHAIR. HE DID REQUIRE INSULIN COVERAGE TODAY. AN ABG WAS PERFORMED AND SHOWED HE WAS SLIGHTLY HYPOXIC, RT RECOMMENDED 2 LPM O2.
[2018-12-31 04:49] LABS: BASOPHILS ABSOLUTE AUTO 0.03 K/mm3 (0.00-0.23); BASOPHILS PERCENT AUTO 0 % (0-2); EOSINOPHILS ABSOLUTE AUTO 0.35 K/mm3 (0.00-0.68); EOSINOPHILS PERCENT AUTO 4 % (0-6); Hematocrit 36.1 % (37.0-53.0); Hemoglobin 11.2 g/dL (13.5-17.5); IMMATURE GRAN ABSOLUTE AUTO 0.03 K/mm3 (0.00-0.10); IMMATURE GRAN PERCENT AUTO 0 % (0-1); LYMPHOCYTES ABSOLUTE AUTO 0.89 K/mm3 (0.84-5.20); LYMPHOCYTES PERCENT AUTO 11 % (21-46); MONOCYTES ABSOLUTE AUTO 0.77 K/mm3 (0.16-1.47); MONOCYTES PERCENT AUTO 10 % (4-13); Mean Corpuscular HGB 27.1 pg (26.0-34.0); Mean Corpuscular Volume 87 fL (80-100); Mean Platelet Volume 11.3 fL (9.1-12.4); NEUTROPHILS ABSOLUTE AUTO 6.05 K/mm3 (1.96-9.15); NEUTROPHILS PERCENT AUTO 74 % (41-73); Platelet Count 129 K/mm3 (150-400); RDW Coefficient Variation 14.6 % (11.7-14.2); RDW Standard Deviation 46.4 fL (35.1-46.3); Red Blood Cell Count 4.13 M/mm3 (4.30-5.90); White Blood Cell Count 8.12 K/mm3 (4.00-11.30)
[2018-12-31 05:11] LABS: Alanine Aminotransfer (ALT/SGP 16 U/L (12-78); Albumin, Blood 2.3 g/dL (3.4-5.0); Albumin/Globulin Ratio 0.5 (0.8-1.8); Alk Phos 57 U/L (50-136); Anion Gap 4 mmol/L (6-16); Aspartate Aminotrans (AST/SGOT 18 U/L (12-37); Bilirubin, Total 0.8 mg/dL (0.1-1.0); Blood Urea Nitrogen 10 mg/dL (8-24); Bun/Creatinine Ratio 15.7 (12.0-20.0); CO2, Blood 36 mmol/L (21-32); Calcium, Blood 8.2 mg/dL (8.5-10.1); Chloride, Blood 101 mmol/L (98-108); Creatinine, Blood 0.64 mg/dL (0.60-1.20); Globulin, Blood 4.7 g/dL (2.2-4.0); Glomerular Filtration Rate >60 (60-); Glucose, Blood 237 mg/dL (70-99); Magnesium, Blood 1.8 mg/dL (1.6-2.4); Potassium, Blood 3.5 mmol/L (3.5-5.5); Sodium, Blood 141 mmol/L (136-145)
--- NOTE | 2018-12-31 07:53 | NUR ---
NOC SHIFT SUMMARY PT HAS SLEPT OFF AND ON THROUGHOUT THE NIGHT. SUCTIONED PRN. PRODUCES THICK SPUTUM. UNABLE TO MOVE LEFT SIDE POST STROKE. SPEACH IS GARBLED BUT CAN MAKE WISHES KNOWN. TURNED THROUGH THE NIGHT. TOLERATED FEEDINGS WELL. NO ACUTE CHANGES NOTED THIS NIGHT. VSS. REPORT TO ONCOMING RN.
--- NOTE | 2018-12-31 09:00 | NUR ---
PT WITH >150ML YELLOW MILKY RESIDUAL. HELD 1ST FEEDING OF SHIFT.
--- NOTE | 2018-12-31 16:16 | NUR ---
DISCHARGE NOTE PT DISCHARGED VIA STRETCHER VIA [facility] AWAKE AND IN NO ACUTE DISTRESS; IV AND LOVE DISCONTINUED PT TOLERATED WELL; TRANSFER PAPERWORK SENT WITH PATIENT.
--- NOTE | 2018-12-31 16:49 | NUR ---
REPORT GIVEN TO LILIA PATTON AT [facility].
== END 2018-12-31 16:23 | DRG 65 ==
LOC: ER 10:15 → PCU 15:18 → MEDS 15:18 → PCU 17:40 → MEDS 12-22 16:25
PROVIDERS: Emergency Medicine; Internal Medicine; Internal Medicine Gastroenterology; ADMIT Internal Medicine
PROC: 0DH63UZ Insertion of Feeding Device into Stomach, Percutaneous Approach (ICD-10-PCS; principal; 2018-12-25 08:30)
DX: I63.9 Cerebral infarction, unspecified (principal); T74.01XA Adult neglect or abandonment, confirmed, initial encounter; G81.94 Hemiplegia, unspecified affecting left nondominant side; L97.919 Non-pressure chronic ulcer of unspecified part of right lower leg with unspecified severity; L97.929 Non-pressure chronic ulcer of unspecified part of left lower leg with unspecified severity; Z79.82 Long term (current) use of aspirin; Z51.5 Encounter for palliative care; Z79.4 Long term (current) use of insulin; I25.2 Old myocardial infarction; E78.5 Hyperlipidemia, unspecified; R29.810 Facial weakness; I25.10 Atherosclerotic heart disease of native coronary artery without angina pectoris; E11.40 Type 2 diabetes mellitus with diabetic neuropathy, unspecified; F43.10 Post-traumatic stress disorder, unspecified; E87.6 Hypokalemia; I51.7 Cardiomegaly; I48.91 Unspecified atrial fibrillation; J44.9 Chronic obstructive pulmonary disease, unspecified; I87.2 Venous insufficiency (chronic) (peripheral); R13.10 Dysphagia, unspecified; Z66 Do not resuscitate; R26.89 Other abnormalities of gait and mobility; R31.9 Hematuria, unspecified; K52.9 Noninfective gastroenteritis and colitis, unspecified; I49.3 Ventricular premature depolarization; B87.9 Myiasis, unspecified; I11.9 Hypertensive heart disease without heart failure
CPT/HCPCS: 36415; 36600; 70450; 70496; 70498; 71046; 80048; 80053; 80061; 80069; 81001; 82803; 82947; 83036; 83735; 84100; 84443; 84478; 84484; 85025; 85610; 85730; 87077; 87086; 87186; 92526; 92610; 93005; 93010; 93306; 94760; 97110; 97112; 97162; 97166; 97530; 97535; 99285-25; A9270; C1769; C9113; J0690; J1650; J1956; J2405; J2704; J3010; J3370; J3480; J7050; J7120; Q9967